=== PATIENT | female | born 1985 | race Caucasian/White ===

== ENCOUNTER 2017-03-25 08:40 | Emergency (ER) | payer OTHER ==
[2017-03-25 09:40] LABS: Basophils % (A) 0 %; Eosinophils # (A) 0.1 k/uL (0-0.7); Eosinophils % (A) 1 %; HCT 42.5 % (34.0-46.0); HGB 14.2 gm/dL (11.4-16.0); Lymphocytes % (A) 29 %; MCH 31.2 pg (25.0-35.0); MCHC 33.3 g/dL (31.0-37.0); MCV 93.5 fL (80.0-100.0); Mean Platelet Volume 6.1; Monocytes # (A) 0.5 k/uL (0-1.0); Monocytes % (A) 8 %; Neutrophils # (A) 4.1 k/uL (1.3-7.7); Neutrophils % (A) 60 %; Platelet Count 305 k/uL (150-450); RBC 4.55 m/uL (3.80-5.40); RDW 12.6 % (11.5-15.5); WBC 6.8 k/uL (3.8-10.6)
[2017-03-25 09:49] LABS: ALT 36 U/L (9-52); AST 15 U/L (14-36); Albumin 4.1 g/dL (3.5-5.0); Alkaline Phosphatase 49 U/L (38-126); Anion Gap 10 mmol/L; Blood Urea Nitrogen 13 mg/dL (7-17); Calcium 9.4 mg/dL (8.4-10.2); Carbon Dioxide 24 mmol/L (22-30); Chloride 106 mmol/L (98-107); Glucose 88 mg/dL (74-99); Potassium 4.3 mmol/L (3.5-5.1); Sodium 140 mmol/L (137-145); Total Bilirubin 0.8 mg/dL (0.2-1.3); Total Protein 6.7 g/dL (6.3-8.2)
--- NOTE | 2017-03-25 09:56 | ED ---
General Adult HPI - General Chief complaint: Vaginal Bleeding Stated complaint: 8 weeks bleeding Time Seen by Provider: 03/25/17 08:50 Source: patient, RN notes reviewed Mode of arrival: ambulatory Limitations: no limitations - History of Present Illness Initial comments: Patient is a 31-year-old female who is G1, P0, approximately 8 weeks from last menstrual cycle, presenting for vaginal spotting. Patient states that she's had some spotting it's been dark in color over the last 2 days. She states that today he became brighter color. States she was advised by opiate come here to the emergency room. Patient denies any other complaints or symptoms. Patient denies any recent fever, chills, shortness of breath, chest pain, back pain, abdominal pain, nausea or vomiting, numbness or tingling, dysuria or hematuria, constipation or diarrhea, headaches or visual changes, or any other complaints. - Related Data Home Medications Medication Instructions Recorded Confirmed Pnv No.95/Ferrous Fum/Folic AC 1 tab PO DAILY 03/25/17 03/25/17 [ Multivitamin Tablet] Allergies Allergy/AdvReac Type Severity Reaction Status Date / Time No Known Allergies Allergy Verified 03/25/17 09:23 Review of Systems ROS Statement: Those systems with pertinent positive or pertinent negative responses have been documented in the HPI. ROS Other: All systems not noted in ROS Statement are negative. Past Medical History Past Medical History: No Reported History History of Any Multi-Drug Resistant Organisms: None Reported Past Surgical History: No Surgical Hx Reported Past Psychological History: No Psychological Hx Reported Smoking Status: Never smoker Past Alcohol Use History: None Reported Past Drug Use History: None Reported General Exam - General Exam Comments Initial Comments: General: The patient is awake and alert, in no distress, and does not appear acutely ill. Eye: Pupils are equal, round and reactive to light, extra-ocular movements are intact. No nystagmus. There is normal conjunctiva bilaterally. No signs of icterus. Ears, nose, mouth and throat: There are moist mucous membranes and no oral lesions. Neck: The neck is supple, there is no tenderness or JVD. Cardiovascular: There is a regular rate and rhythm. No murmur, rub or gallop is appreciated. Respiratory: Lungs are clear to auscultation, respirations are non-labored, breath sounds are equal. No wheezes, stridor, rales, or rhonchi. Gastrointestinal: Soft, non-distended, non-tender abdomen without masses or organomegaly noted. There is no rebound or guarding present. No CVA tenderness. Bowel sounds are unremarkable. Musculoskeletal: Normal ROM, no tenderness. Strength 5/5. Sensation intact. Pulses equal bilaterally 2+. Neurological: A&O x 3. CN II-XII intact, There are no obvious motor or sensory deficits. Coordination appears grossly intact. Speech is normal. Skin: Skin is warm and dry and no rashes or lesions are noted. Psychiatric: Cooperative, appropriate mood & affect, normal judgment. Limitations: no limitations Course Vital Signs 03/25/17 03/25/17 08:49 10:31 Temperature 98.4 F Pulse Rate 83 Respiratory 18 Rate Blood Pressure 148/105 125/82 O2 Sat by Pulse 98 Oximetry Medical Decision Making - Medical Decision Making Patient's ultrasound shows no evidence of intrauterine at this time. Patient's beta hCG is greater than 18,000. Patient's abdomen is soft nontender patient at this time advised of possible miscarriage. Advised follow-up the OB over the next 2 days. Advised to have repeat beta-hCG in 2 days. Advised return if any symptoms increase worsen or for any other concerns. - Lab Data Result diagrams: 03/25/17 09:15 03/25/17 09:15 Lab Results 03/25/17 03/25/17 03/25/17 Range/Units 09:10 09:15 09:15 WBC 6.8 (3.8-10.6) k/uL RBC 4.55 (3.80-5.40) m/uL Hgb 14.2 (11.4-16.0) gm/dL Hct 42.5 (34.0-46.0) % MCV 93.5 (80.0-100.0) fL MCH 31.2 (25.0-35.0) pg MCHC 33.3 (31.0-37.0) g/dL RDW 12.6 (11.5-15.5) % Plt Count 305 (150-450) k/uL Neutrophils % 60 % Lymphocytes % 29 % Monocytes % 8 % Eosinophils % 1 % Basophils % 0 % Neutrophils # 4.1 (1.3-7.7) k/uL Lymphocytes # 2.0 (1.0-4.8) k/uL Monocytes # 0.5 (0-1.0) k/uL Eosinophils # 0.1 (0-0.7) k/uL Basophils # 0.0 (0-0.2) k/uL Sodium (137-145) mmol/L Potassium (3.5-5.1) mmol/L Chloride (98-107) mmol/L Carbon Dioxide (22-30) mmol/L Anion Gap mmol/L BUN (7-17) mg/dL Creatinine (0.52-1.04) mg/dL Est GFR (MDRD) Af Amer (>60 ml/min/1.73 sqM) Est GFR (MDRD) Non-Af (>60 ml/min/1.73 sqM) Glucose (74-99) mg/dL Calcium (8.4-10.2) mg/dL Total Bilirubin (0.2-1.3) mg/dL AST (14-36) U/L ALT (9-52) U/L Alkaline Phosphatase (38-126) U/L Total Protein (6.3-8.2) g/dL Albumin (3.5-5.0) g/dL HCG, Quant mIU/mL Urine Color Light Yellow Urine Appearance Clear (Clear) Urine pH 7.5 (5.0-8.0) Ur Specific [place] 1.007 (1.001-1.035) Urine Protein Negative (Negative) Urine Glucose (UA) Negative (Negative) Urine Ketones Negative (Negative) Urine Blood Moderate H (Negative) Urine Nitrite Negative (Negative) Urine Bilirubin Negative (Negative) Urine Urobilinogen <2.0 (<2.0) mg/dL Ur Leukocyte Esterase Negative (Negative) Urine RBC 14 H (0-5) /hpf Urine WBC 3 (0-5) /hpf Ur Squamous Epith Cells <1 (0-4) /hpf Amorphous Sediment Rare H (None) /hpf Urine Bacteria Few H (None) /hpf Blood Type O Positive Blood Type Recheck No 03/25/17 Range/Units 09:15 WBC (3.8-10.6) k/uL RBC (3.80-5.40) m/uL Hgb (11.4-16.0) gm/dL Hct (34.0-46.0) % MCV (80.0-100.0) fL MCH (25.0-35.0) pg MCHC (31.0-37.0) g/dL RDW (11.5-15.5) % Plt Count (150-450) k/uL Neutrophils % % Lymphocytes % % Monocytes % % Eosinophils % % Basophils % % Neutrophils # (1.3-7.7) k/uL Lymphocytes # (1.0-4.8) k/uL Monocytes # (0-1.0) k/uL Eosinophils # (0-0.7) k/uL Basophils # (0-0.2) k/uL Sodium 140 (137-145) mmol/L Potassium 4.3 (3.5-5.1) mmol/L Chloride 106 (98-107) mmol/L Carbon Dioxide 24 (22-30) mmol/L Anion Gap 10 mmol/L BUN 13 (7-17) mg/dL Creatinine 0.66 (0.52-1.04) mg/dL Est GFR (MDRD) Af Amer >60 (>60 ml/min/1.73 sqM) Est GFR (MDRD) Non-Af >60 (>60 ml/min/1.73 sqM) Glucose 88 (74-99) mg/dL Calcium 9.4 (8.4-10.2) mg/dL Total Bilirubin 0.8 (0.2-1.3) mg/dL AST 15 (14-36) U/L ALT 36 (9-52) U/L Alkaline Phosphatase 49 (38-126) U/L Total Protein 6.7 (6.3-8.2) g/dL Albumin 4.1 (3.5-5.0) g/dL HCG, Quant 67468.8 mIU/mL Urine Color Urine Appearance (Clear) Urine pH (5.0-8.0) Ur Specific [place] (1.001-1.035) Urine Protein (Negative) Urine Glucose (UA) (Negative) Urine Ketones (Negative) Urine Blood (Negative) Urine Nitrite (Negative) Urine Bilirubin (Negative) Urine Urobilinogen (<2.0) mg/dL Ur Leukocyte Esterase (Negative) Urine RBC (0-5) /hpf Urine WBC (0-5) /hpf Ur Squamous Epith Cells (0-4) /hpf Amorphous Sediment (None) /hpf Urine Bacteria (None) /hpf Blood Type Blood Type Recheck Disposition Clinical Impression: Threatened Disposition: HOME SELF-CARE Condition: Good Instructions: Threatened Miscarriage (ED) Additional Instructions: Please follow-up with the CREDIT CARD CLERK over the next 2 days and have repeat labs performed as discussed. Please return to emergency room if the symptoms increase or worsen or for any other concerns. Referrals: Lisette Desai DO [Primary Care Provider] - 1-2 days Vincenzo Zheng MD [STAFF PHYSICIAN] - 1-2 days Time of Disposition: 10:53
[2017-03-25 10:02] LABS: Amorphous Sediment,Urine Rare /hpf; Appearance,Urine Clear (Clear); Bacteria,Urine Few /hpf; Bilirubin,Urine Negative (Negative); Blood,Urine Moderate (Negative); Color,Urine Light Yellow; Glucose,Urine (UA) Negative (Negative); Ketones,Urine Negative (Negative); Leukocyte Esterase,Urine Negative (Negative); Nitrite,Urine Negative (Negative); PH, Urine 7.5 (5.0-8.0); Protein,Urine Negative (Negative); RBC,Urine 14 /hpf (0-5); Specific Gravity,Urine 1.007 (1.001-1.035); Squamous Epithelial Cell,Urine <1 /hpf (0-4); Urobilinogen,Urine <2.0 mg/dL (<2.0); WBC,Urine 3 /hpf (0-5)
--- NOTE | 2017-03-25 10:38 | US ---
EXAMINATION TYPE: US OB <=14 wks transvag DATE OF EXAM: 03/25/2017 COMPARISON: NONE CLINICAL HISTORY: Vaginal bleeding x 2 days in ; EXAM PERFORMED: Transvaginal (TV) and Transabdominal (TA) EXAM MEASUREMENTS: GESTATIONAL AGE / DATING Physician Established: Not yet established Dates by LMP: (8 weeks/1 day) EDC: 11/03/2017 Dates by First Scan: No previous. Today is first scan Dates by Current Scan for: ( 5 weeks/6 days) EDC: 11/19/2017 MATERNAL ANATOMY Uterus: 9.6 x 5.3 x 5.2cm Right Ovary: 2.1 x 1.1 x 2.6cm Left Ovary: 2.8 x 2.7 x 2.2cm Post CDS / Adnexa: wnl Presence of free fluid: near cervix and right ovary small amount of free fluid is seen = 1.2 x 0.4 x 2.1cm. Presence of corpus luteal cyst: in left ovary = 2.2 x 2.0 x 1.8cm Presence of subchorionic bleed: yes, upper right to gestational sac = 0.6 x 0.4 x 0.6cm GESTATION / SURVEY CRL: no pole is seen MSD: 1.6cm (5 weeks/6 days) Yolk Sac (normal less than 6mm): NOT SEEN IUP: single gestational sac is seen Date of LMP: 01/27/2017 Beta HcG (if available): NA small subchorionic hemorrhage is noted at upper right uterus. No ectopic is identified. Slightly retroverted uterus is present. Endometrium is not well identified to distinctly measure. The re is oval anechoic area measuring 19 x 9 x 21 mm. This could reflect gestational sac. Correlate with today's beta-hCG value. No yolk sac or pole is clearly seen. Superior to this there is hypoech oic smaller 5 mm area could reflect small subchorionic hemorrhage. Small moderate free fluid is seen in pelvic cul-de-sac. Both ovaries are identified. Within left ovary there is 2.2 cm oval anechoic lesion felt to reflect c orpus luteal cyst. No suspicious extraovarian adnexal masses are seen. IMPRESSION: Abnormal study, differential could reflect too early to visualize intrauterine but yolk sac and pole are not clearly seen and yolk sac would be expected to be visualized for this size ge stational sac, spontaneous is in differential and ectopic also cannot be excluded. Serial beta hCG and ultrasound follow-up is advised.
[2017-03-25 10:40] LABS: HCG,Quantitative Serum 18807.8 mIU/mL
[2017-03-25 11:07] VITALS: BP 125/71; PULSE 72; RESP 15; TEMP 98.8
== END 2017-03-25 11:07 | disposition home or self-care (01) ==
LOC: EC 08:40
DX: O20.0 Threatened abortion (principal); Z79.899 Other long term (current) drug therapy; Z3A.08 8 weeks gestation of pregnancy
CPT/HCPCS: 36415; 76801; 76817; 80053; 81001; 84702; 85025; 86900; 86901; 87086; 99284

== ENCOUNTER → 2017-03-27 | Outpatient (CLI) | payer OTHER | END | disposition home or self-care (01) | LOC: LABMAIN 12:03 | PROVIDERS: ATTEND Physician Assistant | DX: O20.0 Threatened abortion (principal); Z3A.00 Weeks of gestation of pregnancy not specified; N93.9 Abnormal uterine and vaginal bleeding, unspecified | CPT/HCPCS: 36415; 84702 ==

== ENCOUNTER → 2017-04-05 | Outpatient (CLI) | payer OTHER | END | disposition home or self-care (01) | LOC: LABWHC1 16:49 | PROVIDERS: ATTEND Obstetrics & Gynecology | DX: O02.1 Missed abortion (principal); Z3A.00 Weeks of gestation of pregnancy not specified | CPT/HCPCS: 36415; 84702 ==

== ENCOUNTER → 2017-04-07 | Outpatient (CLI) | payer OTHER ==
[2017-04-07 11:42] LABS: HCT 41.8 % (34.0-46.0); HGB 13.5 gm/dL (11.4-16.0); MCH 30.8 pg (25.0-35.0); MCHC 32.2 g/dL (31.0-37.0); MCV 95.5 fL (80.0-100.0); Mean Platelet Volume 6.4; Platelet Count 350 k/uL (150-450); RBC 4.38 m/uL (3.80-5.40); RDW 12.7 % (11.5-15.5); WBC 8.1 k/uL (3.8-10.6)
== END | disposition home or self-care (01) ==
LOC: LABWHC1 09:29
PROVIDERS: ATTEND Obstetrics & Gynecology
DX: O02.1 Missed abortion (principal)
CPT/HCPCS: 36415; 84702; 85027; 86850; 86900; 86901

== ENCOUNTER → 2017-04-13 | Outpatient (CLI) | payer OTHER | END | disposition home or self-care (01) | LOC: LABWHC1 13:42 | PROVIDERS: ATTEND Obstetrics & Gynecology | DX: O03.9 Complete or unspecified spontaneous abortion without complication (principal) | CPT/HCPCS: 36415; 84702 ==